=== PATIENT | male | born 1945 | race Caucasian/White ===

== ENCOUNTER 2020-09-25 03:06 | Emergency (ER) | payer MEDICARE, SELFPAY ==
[2020-09-25 03:08] VITALS: BP 186/94; PULSE 92; RESP 18; TEMP 37.3; O2SAT 99; BMI 20.7
[2020-09-25 03:43] LABS: Bacteria Urine None Seen; RBC Urine None Seen (0-5/HPF); WBC Urine None Seen (0-5/HPF)
[2020-09-25 03:44] LABS: Appearance Urine UA CLEAR; Bilirubin Urine UA NEGATIVE (NEGATIVE); Color Urine UA YELLOW; Glucose Urine UA NEGATIVE (Negative); Ketones Urine UA NEGATIVE (NEGATIVE); Leukocyte Esterase Urine UA NEGATIVE (NEGATIVE); Nitrite Urine UA NEGATIVE (Negative); Occult Blood Urine UA NEGATIVE (Negative); Protein Urine UA NEGATIVE (Negative); Specific Gravity Urine UA <=1.005 (1.000-1.035); Urobilinogen Urine UA 0.2 E.U./dL (0.2); pH Urine UA 6.5 (4.5-8.0)
[2020-09-25 03:48] LABS: Culture Indicated Urine Cult Not Indicated; Urine Comments Microscopic Normal
--- NOTE | 2020-09-25 04:19 | ED.MALEGU ---
HPI - Male Genitourinary General Chief complaint: Urogenital-Male Stated complaint: Unable to urinate Time Seen by Provider: 09/25/20 04:19 Source: patient Mode of arrival: Ambulatory Limitations: no limitations History of Present Illness HPI Narrative: This is a 74-year-old gentleman with known BPH who follows with Dr. Oliver for his urology. Patient is on Flomax daily. He noted had issues with some difficulty with urination, he will often find that he has difficulty emptying his better and then ?things will release? and he will be able to fully empty. This happens to him about once a week. Today he got severely uncomfortable. He came to the emergency department he about 1000 mL out by catheterization here in the department. He felt significantly better after this. He denies fevers, he denies any abdominal or flank pain after urine catheterization. He denies any frequency, dysuria sense of urgency. No new GI or urinary symptoms. Patient states he does not take any other medications regularly besides vitamins. He denies any prior surgeries. He denies any allergies to medications. Related Data Allergies Allergy/AdvReac Type Severity Reaction Status Date / Time No Known Drug Allergies Allergy Verified 09/25/20 04:33 Review of Systems Review of Systems ROS Unobtainable: All systems reviewed & are unremarkable except as noted in HPI and below Patient History Medical History (Updated 09/25/20 @ 04:38 by Isamar Su DO) BPH (benign prostatic hyperplasia) Substance Use Type: does not use Exam Narrative Exam Narrative: GENERAL: Alert and oriented x three, thin, elderly male in mild distress. This is post catheterization evaluation. HEENT: Head normocephalic, atraumatic, EOMI, pupils reactive, face symmetric, moist mucous membranes NECK: Supple, full range of motion CARDIOVASCULAR: Regular rate and rhythm without murmurs, rubs or gallops. RESPIRATORY: Breath sounds equal bilaterally, no wheezes rales or rhonchi. ABDOMEN: Soft, nontender. Normoactive bowel sounds all 4 quadrants. No guarding or rebound, rigidity, no mass : No CVA tenderness EXTREMITIES: Normal range of motion, no clubbing or edema. Neurovascularly intact NEUROLOGICAL: Cranial nerves II through XII grossly intact. Moving all extremities SKIN: Warm, dry, no petechiae, no rashes or lesions. Initial Vital Signs Initial Vital Signs: Vital Signs Temperature 99.1 F 09/25/20 03:08 Pulse Rate 92 H 09/25/20 03:08 Respiratory Rate 18 09/25/20 03:08 Blood Pressure 186/94 H 09/25/20 03:08 Pulse Oximetry 99 09/25/20 03:08 Course Orders Ordered: ED Orders 09/25/20 03:25 Urinalysis and Microscopic Stat Vital Signs Vital signs: Vital Signs - 8 hr 09/25/20 03:08 09/25/20 04:40 Temperature 99.1 F Pulse Rate 92 H 94 H Respiratory Rate 18 16 Blood Pressure 186/94 H 138/65 Pulse Oximetry 99 96 MDM - Male Genitourinary Lab Data Attestation: I reviewed the patient's lab results. Labs: Lab Results 09/25/20 Range/Units 03:25 Urine Color Yellow Urine Appearance Clear Urine pH 6.5 (4.5-8.0) Ur Specific [place] <=1.005 (1.000-1.035) Urine Protein Negative (Negative) Urine Glucose (UA) Negative (Negative) g/dL Urine Ketones Negative (NEGATIVE) Urine Occult Blood Negative (Negative) Urine Nitrate Negative (Negative) Urine Bilirubin Negative (NEGATIVE) Urine Urobilinogen 0.2 (0.2) E.U./dL Ur Leukocyte Esterase Negative (NEGATIVE) Urine RBC None seen (0-5/HPF) Urine WBC None seen (0-5/HPF) Urine Bacteria None seen (None) Ur Culture Indicated? Cult not indicated Micro UA Comment Microscopic normal MDM Narrative Medical decision making narrative: Patient had urine straight cath which produced a 1000 mL. We discussed that patient likely needs a Mobley catheter for several days to allow the bladder to return to its normal size. Patient defers placement Mobley catheter and would prefer to return home. We did discuss there is a high likelihood he will be back in the next day or so with urinary retention again. He has known BPH. He has had intermittent issues in the past and follows with urology regularly. He is currently on Flomax. No signs in his urine of infection. Patient will contact his urologist to follow up this week. He was encouraged to return sooner if he develops recurrent symptoms. Patient does not think he has been constipated but is occasionally. Encouraged to make sure he is either taking a stool softener or increasing his hydration and adding prunes or similar fiber to make sure that he has regular to prevent recurrence. Discharge Plan Departure Patient Disposition: Home Clinical Impression: Acute urinary retention Instructions: DI for Urinary Retention in Men Activity Restrictions/Additional Instructions: Follow up with urology for recheck. You may develop recurrent urinary retention as we are not sending her home with a Mobley catheter. You may need to return to for mobley catheter placement if your symptoms recur Continue your home flomax Return for fevers, new or worsening abdominal, back or flank pain, inability urinate, lightheadedness, passing out, persistent vomiting, black or bloody stools or other new or concerning symptoms. Referrals: Sayra Washburn MD [Non-Staff] -
[2020-09-25 04:40] VITALS: BP 138/65; PULSE 94; RESP 16; O2SAT 96
== END 2020-09-25 04:50 | disposition home or self-care (01) ==
PROVIDERS: Emergency Provider Emergency Medicine
DX: R33.8 Other retention of urine (principal)
CPT/HCPCS: 51798; 81001; 99282; 99283

== ENCOUNTER 2021-01-27 11:23 | Emergency (ER) | payer MEDICARE, SELFPAY ==
[2021-01-27 11:31] VITALS: BP 115/68; PULSE 85; RESP 18; TEMP 36.7; O2SAT 96; BMI 20.3
--- NOTE | 2021-01-27 12:11 | ED_ITS ---
HPI - URI/Sore Throat <Irena Simeon PA-C - Last Filed: 01/27/21 12:46> General Chief Complaint: Upper Respiratory Symptoms Stated Complaint: covid+, shallow breathing, nausea, congestion Time Seen by Provider: 01/27/21 12:10 Source: patient Mode of arrival: Ambulatory Limitations: no limitations History of Present Illness HPI Narrative: 75-year-old male with no significant pertinent medical history presents with concern for COVID. He took an [id number] test last night that was positive. He says most of his household is positive including his and other family members who spend time together recently with someone from [place] was not vaccinated and like to ?not wear a mask. He himself was vaccinated with [employer]. Since Sunday he has been having some congestion mild sore throat no significant coughing, also having some nausea which he says makes it challenging to want to eat. He says he went to the walk-in clinic to get tested and see if he needed any medicines and they sent him to the emergency department because his oxygen saturation was 94%. He says he is feeling a little bit fatigued when he gets up and walks around but otherwise has no complaints. Denies fevers, chills, shortness of breath, neck pain or stiffness, severe headache, diarrhea, vomiting, chest pain, abdominal pain or any other symptoms. Related Data Previous Rx's Medication Instructions Recorded benzonatate 100 mg capsule 100 mg PO TID PRN #30 cap 01/27/21 (Tessalon Perles) ondansetron HCl 4 mg tablet 4 mg PO Q8H PRN 10 Days #30 tab 01/27/21 (Zofran) Allergies Allergy/AdvReac Type Severity Reaction Status Date / Time No Known Drug Allergies Allergy Verified 09/25/20 04:33 Review of Systems <Irena Simeon PA-C - Last Filed: 01/27/21 12:46> Review of Systems Narrative: Unremarkable except as noted in the HPI Patient History <Irena Simeon PA-C - Last Filed: 01/27/21 12:46> Medical History BPH (benign prostatic hyperplasia) Social History Smoking Status: Former smoker Smoking Status: Former smoker Substance Use Type: does not use Exam <Irena Simeon PA-C - Last Filed: 01/27/21 12:46> Narrative Exam Narrative: GENERAL: [75] year old patient appears stated age. Well- nourished, well-developed patient, in mild distress. HEAD: Atraumatic. Normocephalic. EYES: Pupils equal round and reactive. Extraocular motions intact. No scleral icterus. No injection or drainage. ENT: Nose without bleeding, purulent drainage. Throat without erythema, tonsillar hypertrophy or exudate. Airway patent. NECK: Trachea midline. CARDIOVASCULAR: Regular rate and rhythm without murmurs, gallops, or rubs. RESPIRATORY: Clear to auscultation. Breath sounds equal bilaterally. No wheezes, rales, or rhonchi. GASTROINTESTINAL: Abdomen nondistended. EXTREMITIES: No edema or joint tenderness. BACK: Nontender without deformity or crepitance. No flank tenderness. NEURO: AOx3. SKIN: No rash or erythema of visible areas Initial Vital Signs Initial Vital Signs: Vital Signs Temperature 98.0 F 01/27/21 11:31 Pulse Rate 85 01/27/21 11:31 Respiratory Rate 18 01/27/21 11:31 Blood Pressure 115/68 01/27/21 11:31 Pulse Oximetry 96 01/27/21 11:31 <Renaldo Willson DO - Last Filed: 01/27/21 18:44> Initial Vital Signs Initial Vital Signs: Vital Signs Temperature 98.0 F 01/27/21 11:31 Pulse Rate 85 01/27/21 11:31 Respiratory Rate 18 01/27/21 11:31 Blood Pressure 115/68 01/27/21 11:31 Pulse Oximetry 96 01/27/21 11:31 Course <Irena Simeon PA-C - Last Filed: 01/27/21 12:46> Orders Ordered: ED Orders 01/27/21 11:38 COVID19 -Nasal swab/Pre-Proc Stat Vital Signs Vital signs: Vital Signs - 8 hr 01/27/21 11:31 01/27/21 12:37 Temperature 98.0 F Pulse Rate 85 69 Respiratory Rate 18 18 Blood Pressure 115/68 121/64 Pulse Oximetry 96 97 <Renaldo Willson DO - Last Filed: 01/27/21 18:44> Orders Ordered: ED Orders 01/27/21 11:38 COVID19 -Nasal swab/Pre-Proc Stat Vital Signs Vital signs: Vital Signs - 8 hr 01/27/21 11:31 01/27/21 12:37 Temperature 98.0 F Pulse Rate 85 69 Respiratory Rate 18 18 Blood Pressure 115/68 121/64 Pulse Oximetry 96 97 MDM - URI/Sore Throat <Irena Simeon PA-C - Last Filed: 01/27/21 12:46> Differential Diagnosis Differential diagnosis: Likely upper respiratory infection, sinusitis, viral infection, influenza and other (COVID) Lab Data Labs: Lab Results 01/27/21 Range/Units 11:38 SARS-CoV-2 (PCR) Positive H (Negative) MDM Narrative Medical decision making narrative: Well appearing ambulatory 75-year-old presents with concern for positive COVID home test. Sent from the walk-in clinic due to concern about oxygen saturations of 94%. In the ED patient's oxygen saturations are 96-98%. He is in no respiratory distress, has no complaints other than some mild congestion and a mild sore throat as well as some nausea. He is retested with a PCR test for further evaluation. Does admit to having positive COVID family members at home. Discussed options for [id number] and prescription medications, prescription for antinausea medicine Zofran and Tessalon for cough which is likely to become more problematic over the next few days. Discussed quarantining and return precautions. Patient had no further questions. Based on his exam, history and vitals do not believe that he warrants further evaluation with labs and chest x- ray. Return precautions provided, follow-up plan discussed, all questions answered. Patient's PCR test does come back positive for COVID. <Renaldo Willson DO - Last Filed: 01/27/21 18:44> Lab Data Labs: Lab Results 01/27/21 Range/Units 11:38 SARS-CoV-2 (PCR) Positive H (Negative) Discharge Plan Departure Patient Disposition: Home Clinical Impression: COVID-19 Activity Restrictions/Additional Instructions: You are coping well with your illness at this time, but follow up with your doctor over the next few days via telemedicine if available is recommended especially if you feel you are worsening and need further evaluation. Please return to the Emergency Department for worsening or persistent symptoms as we discussed. Please take medications as directed. I prescribed a cough medicine for you, you need to take it now but if you do start having a lot of coughing with this it may be helpful, I have also prescribed some antinausea medicine for you to help you get food down. Please work on staying hydrated, make sure you are eating healthy and continue to quarantine until your symptom free for at least 3 days and at least 10 days since the beginning of your symptoms. Prescriptions: New ondansetron HCl [Zofran] 4 mg tablet 4 mg PO Q8H PRN (Reason: nausea and vomiting) 10 Days Qty: 30 RF: 0 benzonatate [Tessalon Perles] 100 mg capsule 100 mg PO TID PRN (Reason: cough) Qty: 30 RF: 0 Referrals: Miscellaneous,Doctor, [Primary Care Provider] - <Renaldo Willson DO - Last Filed: 01/27/21 18:44> Cosign ED Attending Cosignature Attestation: I was immediately available in the department for consultation. This documentation has been reviewed and I agree with assessment and plan. Supervised by Renaldo Willson DO
[2021-01-27 12:37] VITALS: BP 121/64; PULSE 69; RESP 18; O2SAT 97
[2021-01-29 09:03] LABS: COVID19 -Nasal RAPID POSITIVE (Negative)
== END 2021-01-27 13:08 | disposition home or self-care (01) ==
PROVIDERS: Emergency Medicine; Emergency Provider Student in an Organized Health Care Education/Training Program
DX: U07.1 COVID-19 (principal)
CPT/HCPCS: 87635; 99281; 99282; C9803

== ENCOUNTER 2021-06-08 07:25 | Emergency (ER) | payer MEDICARE, SELFPAY ==
[2021-06-08 07:25] VITALS: BP 162/83; PULSE 96; RESP 18; TEMP 36.8; O2SAT 96; BMI 21.1
--- NOTE | 2021-06-08 07:45 | ED_ITS ---
HPI - General Adult General Chief complaint: Urogenital-Male Stated complaint: unable to empty bladder x2 hours Time Seen by Provider: 06/08/21 07:37 Source: patient Mode of arrival: Ambulatory History of Present Illness HPI narrative: Patient is a 75-year-old male who has a known history of prostate issues. Has had urinary retention in the past. Last episode was 6 months ago. A Roper catheter placed in the emergency department however it was removed prior to discharge home. He has not had any issues until last evening. States that he last urinated about 0200 hours in the morning. Since then has had issues with urination. No fevers. Had a small bowel movement this morning. Has a follow- up his urologist in 1 week from now. He states he arrived to the emergency department today earlier than what he did the last time with regard to his symptoms. Related Data Previous Rx's Medication Instructions Recorded benzonatate 100 mg capsule 100 mg PO TID PRN #30 cap 01/27/21 (Tesjulio Batista) Allergies Allergy/AdvReac Type Severity Reaction Status Date / Time No Known Drug Allergies Allergy Verified 09/25/20 04:33 Review of Systems Constitutional Constitutional: Denies fever(s) Cardiovascular Cardiovascular: Reports system reviewed and no additional complaints, except as documented Respiratory Respiratory: Reports system reviewed and no additional complaints, except as documented Gastrointestinal Gastrointestinal: Reports abdominal pain, Denies nausea and Denies vomiting Genitourinary Genitourinary: Reports as per HPI Integumentary/Breasts Skin/Breast: Reports system reviewed and no additional complaints, except as documented Neurologic Neurologic: Reports system reviewed and no additional complaints, except as documented Hematologic/Lymphatic On Anticoagulants: No Patient History Medical History BPH (benign prostatic hyperplasia) Social History Smoking Status: Former smoker Smoking Status: Former smoker Substance Use Type: does not use Exam Initial Vital Signs Initial Vital Signs: Vital Signs Temperature 98.3 F 06/08/21 07:25 Pulse Rate 96 H 06/08/21 07:25 Respiratory Rate 18 06/08/21 07:25 Blood Pressure 162/83 H 06/08/21 07:25 Pulse Oximetry 96 06/08/21 07:25 HENMT Head: normal to inspection Resp Effort & Inspection: normal respiratory effort GI Inspection: normal to inspection Palpation: soft and No tender External: normal external exam Skin General: no rashes or lesions noted Neuro General: patient alert, patient awake and moves all extremities Extrem General: normal to inspection and capillary refill normal Psych Appearance: grossly normal and well kempt Course Orders Ordered: ED Orders 06/08/21 07:45 Urinalysis and Microscopic Stat Vital Signs Vital signs: Vital Signs - 8 hr 06/08/21 07:25 Temperature 98.3 F Pulse Rate 96 H Respiratory Rate 18 Blood Pressure 162/83 H Pulse Oximetry 96 Medical Decision Making MDM Narrative Medical decision making narrative: Roper catheter was placed. We did have return of greater than 600 cc of urine. Was clear. A urine culture was pending at the time of discharge. We will wait for that before starting any antibiotics. He is currently on Flomax. Has follow-up with his urologist in 1 week for now. Had a discussion with him regarding options to include leaving the Roper catheter in place verses removing it. We did discuss the risks and benefits of this. He would like to have Roper catheter removed. He will return if symptoms return. He will continue with his Flomax. He expressed understanding agreement this plan. Discharge Plan Departure Patient Disposition: Home Clinical Impression: Acute retention of urine Instructions: DI for Urinary Retention in Men Activity Restrictions/Additional Instructions: It is important that she stay hydrated and also continue with your tamsulosin/Flomax. Keep your appointment with your urologist that is scheduled for next week. Return to the emergency department for any new or worsening symptoms. Prescriptions: No Action benzonatate [Tessalon Perles] 100 mg capsule 100 mg PO TID PRN (Reason: cough) Qty: 30 0RF Referrals: Miscellaneous,Doctor, [Primary Care Provider] -
[2021-06-08 08:19] VITALS: BP 150/60; PULSE 89; RESP 18; O2SAT 96
[2021-06-08 08:21] LABS: Appearance Urine UA CLEAR; Bilirubin Urine UA NEGATIVE (NEGATIVE); Color Urine UA YELLOW; Glucose Urine UA NEGATIVE (Negative); Ketones Urine UA NEGATIVE (NEGATIVE); Leukocyte Esterase Urine UA NEGATIVE (NEGATIVE); Nitrite Urine UA NEGATIVE (Negative); Occult Blood Urine UA NEGATIVE (Negative); Protein Urine UA NEGATIVE (Negative); Urobilinogen Urine UA 0.2 E.U./dL (0.2); pH Urine UA 6.5 (4.5-8.0)
[2021-06-08 08:28] LABS: Bacteria Urine None Seen; Culture Indicated Urine Cult Not Indicated; RBC Urine None Seen (0-5/HPF); Squamous Epithelial Cell Urine None Seen (0-5/HPF); WBC Urine None Seen (0-5/HPF)
== END 2021-06-08 08:24 | disposition home or self-care (01) ==
PROVIDERS: Emergency Provider Emergency Medicine
DX: R33.9 Retention of urine, unspecified (principal)
CPT/HCPCS: 51702; 81001; 99283

== ENCOUNTER 2023-09-08 00:10 | Emergency (ER) | payer MEDICARE, SELFPAY ==
[2023-09-08 00:14] VITALS: BP 170/98; PULSE 104; RESP 18; TEMP 36.8; O2SAT 95; BMI 22.0
[2023-09-08] MEDS: LIDOCAINE 2% (GLYDO) 6 ML GEL TOP (00:45)
--- NOTE | 2023-09-08 01:38 | PC.NURSE ---
Pt states pain has improved since arrival to ER. Pain 8.5/10 to normal 07/04
--- NOTE | 2023-09-08 02:12 | ED.GENADULT ---
HPI - General Adult General Chief complaint: Urogenital-Male Stated complaint: acute urinary retention Time Seen by Provider: 09/08/23 00:17 Source: patient Mode of arrival: Ambulatory History of Present Illness HPI narrative: 77-year-old gentleman with a history of BPH, currently on 0.8 mg of tamsulosin and followed by Urology [facility] presents with acute urinary retention. He has had 3 or 4 episodes of this previously has been to the emergency department with an in and out catheter and has always requested the Roper, out. He has not needed to come back for replacement. He states that he has not had any new medications, is not having any symptoms to suggest infection and has not missed any of his tamsulosin dosing. He complains of significant abdominal and lower pelvic pain on arrival Related Data Previous Rx's Medication Instructions Recorded benzonatate 100 mg capsule 100 mg PO TID PRN cough #30 caps 01/27/21 (Shelley Batista) Allergies Allergy/AdvReac Type Severity Reaction Status Date / Time No Known Drug Allergies Allergy Verified 09/25/20 04:33 Review of Systems Review of Systems Narrative: Pertinent positive and negative findings as per HPI Patient History Medical History BPH (benign prostatic hyperplasia) Social History Smoking Status: Former smoker Smoking Status: Former smoker Substance Use Type: does not use Exam Initial Vital Signs Initial Vital Signs: Vital Signs Temperature 98.3 F 09/08/23 00:14 Pulse Rate 104 H 09/08/23 00:14 Respiratory Rate 18 09/08/23 00:14 Blood Pressure 170/98 H 09/08/23 00:14 Pulse Oximetry 95 09/08/23 00:14 Oxygen Delivery Method Room Air 09/08/23 00:14 General: Alert appropriate in no acute distress Respiratory: Able to speak in full sentences, no obvious respiratory distress Skin: No obvious rashes, warm and dry Neurologic: Grossly intact no obvious asymmetries or abnormalities Psych: appropriate insight and affect, cooperative Roper catheter placed by nursing staff and 900 cc of clear urine is drained Course Orders Ordered: Discontinued Medications Lidocaine HCl (Lidocaine 2% (Glydo) 6 Ml Gel) 6 ml TOP NOW ONE Stop: 09/08/23 00:34 Last Admin: 09/08/23 00:45 Dose: 6 ml Documented By: MORGAN Vital Signs Vital signs: Vital Signs - 8 hr 09/08/23 00:14 Temperature 98.3 F Pulse Rate 104 H Respiratory Rate 18 Blood Pressure 170/98 H Pulse Oximetry 95 Oxygen Delivery Method Room Air Medical Decision Making MDM Narrative Medical decision making narrative: 77-year-old gentleman presents with acute urinary retention with no change to medications. On tamsulosin known BPH. States that this happens every your so and simply draining his bladder has been adequate in the past. He is very clear that he does not want to be discharged home with Roper catheter in place as it is so uncomfortable. With shared decision-making we agreed that the catheter would come out recognizing that if he is unable to void again he will need to come back. He will follow up with Urology and we will continue tamsulosin. Questions are answered he is safe for discharge Discharge Plan Departure Patient Disposition: Home Clinical Impression: Acute on chronic urinary retention BPH (benign prostatic hyperplasia) Qualifiers: Lower urinary tract symptom presence: symptoms present Lower urinary tract symptom detail: urinary retention Qualified Code(s): N40.1 - Benign prostatic hyperplasia with lower urinary tract symptoms Instructions: DI for Urinary Retention in Men Activity Restrictions/Additional Instructions: Thank you for coming in today With Roper catheter placed, you drained 900 cc of clear urine. It will be sent for urinalysis and we will contact you if there is any sign of infection. You have requested that we do not discharge you with a Roper catheter in place and I will certainly respect that. If you find that you are again unable to void, you will need to return to the ER for repeat Roper catheter placement. Please continue with your tamsulosin at 0.8 mg. I would recommend at least a phone call follow up with your urologist regarding this episode of acute urinary retention. Prescriptions: No Action benzonatate [Tessalon Perles] 100 mg capsule 100 mg PO TID PRN (Reason: cough) Qty: 30 0RF Referrals: Miscellaneous,Doctor, MD [Primary Care Provider] - Stand Alone Forms: Patient Portal/API
[2023-09-08 02:31] VITALS: BP 148/77; PULSE 75; RESP 20; O2SAT 94
== END 2023-09-08 02:33 | disposition home or self-care (01) ==
PROVIDERS: Emergency Provider Emergency Medicine
DX: N40.1 Benign prostatic hyperplasia with lower urinary tract symptoms (principal); R39.15 Urgency of urination
CPT/HCPCS: 51702; 51798; 99283

== ENCOUNTER → 2024-11-03 07:49 | Outpatient (CLI) | payer MEDICARE, SELFPAY | PROVIDERS: Referring Provider Urology; Visit Provider Urology | DX: Z01.818 Encounter for other preprocedural examination (principal); N40.1 Benign prostatic hyperplasia with lower urinary tract symptoms; R97.20 Elevated prostate specific antigen [PSA]; Z68.25 Body mass index [BMI] 25.0-25.9, adult | CPT/HCPCS: 87086; 99214 ==

== ENCOUNTER 2024-11-11 10:23 | Day surgery (SDC) | payer MEDICARE, SELFPAY ==
[2024-10-31 10:30] VITALS: BMI 25.0
[2024-11-11] VITALS (10 sets, daily range): BP systolic 110–134; BP diastolic 59–77; PULSE 85–112; RESP 14–22; TEMP 35.9–36.7; O2SAT 93–97; BMI 24.8
--- NOTE | 2024-11-11 | PATH_ITS ---
[facility] Accession Number: [id number] No. of containers..01 Tissue . 01 Material submitted: . prostate - PROSTATE CHIPS . 01 Diagnosis: PROSTATE CHIPS (42 GRAMS), TRANSURETHRAL RESECTION: Benign prostatic hyperplasia. No evidence of malignancy. MRV 11/18/2024 1430 Local . 01 Electronically signed: . Nataly Capps MD, Pathologist NPI- [id number] . 01 Gross description: . Received in formalin with two identifiers and prostate chips, are multiple eduardo soft tissue fragments admixed with a small amount of hemorrhagic material weighing 42 grams and aggregating to 10.3 x 9.0 x 2.5 cm. Approximately 50% of the specimen is submitted in A1-A10. ([id number]) /MRV 11/12/2024 2129 Local . 01 Pathologist provided ICD-10: N40.1 . 01 CPT . 075118 Specimen Comment: A courtesy copy of this report has been sent to [facility] Pathology Performed at: [address] [address], [place], [place] [id number] MD Doroteo Morales MD Phone: [phone]
[2024-11-11] MEDS: LACTATED RINGERS 1,000 ML 42 ML IV (10:45)
[2024-11-11] MEDS: ACETAMINOPHEN 325 MG TABLET 975 MG PO (10:46)
--- NOTE | 2024-11-11 13:15 | PM.PREOP ---
Pre-operative Note COVID-19 COVID-19 status: Not tested Interval Note History & Physical reviewed/Exam performed by Physician: Yes Changes to H&P: No
[2024-11-11] MEDS: levoFLOXacin 500 MG/100 ML PIGGYBACK 100 MG IV (13:43)
--- NOTE | 2024-11-11 14:13 | SUR.OPER ---
Lithotomy on padded OR bed, head on pillow, arms secured on padded arm boards at <90 degrees abduction. Legs secured in padded yellow fins stirrups.
[2024-11-11] MEDS: LACTATED RINGERS 1,000 ML 21 ML IV ×2 (14:20→15:58)
--- NOTE | 2024-11-11 16:58 | PM.OP.1 ---
Operative Date/Time/Diagnoses Date of procedure: 11/11/24 Time of procedure: 14:00 Pre-op diagnosis: Benign prostatic hyperplasia with lower urinary tract symptoms Post-op diagnosis: same Procedure & Clinicians Procedure: Cystoscopy Aquablation Same procedure as scheduled: Yes Indications: 79 y/o M noted to have symptoms consistent w/ BPH and LUTS that are currently poorly managed w/ Tamsulosin 0.8mg daily and strongly desires surgical management via an Aquablation procedure. Surgeon: Toni Loya Click Yes if Unassisted: Yes Anesthesia Type: General Operative Notes Findings: Very large prostate, large intravesical median lobe Closure Type: not applicable Specimen(s): other (prostate chips) Applied: catheter Estimated Blood Loss (mL): 50 Blood products transfused: none Procedure in detail: After informed consent was obtained, the patient was identified brought to the operating room where he was placed in his supine position on the table.? Once there anesthesia was induced and maintained.? Ensuring an adequate level of anesthesia the patient was transitioned to the lithotomy position where after time-out he was prepped.? After prepping, ensuring an adequate level of anesthesia, administration IV antibiotics and time-out 60 cc of ultrasound gel was instilled within the rectum and the ultrasound probe which had been attached to the TRUS stepper which was attached to the TRUS stepper articulating arm which was secured to the bed was advanced into the rectum under direct vision via the ultrasound.? The ultrasound probe was then aligned and confirmation made that the prostate was centered and aligned in both the sagittal and transverse views.? The bladder neck, verumontanum, central and transitional zones were identified.? With the ultrasound in place and adjusted the patient was then draped in a sterile fashion. With the patient draped the 24 Nepalese aqua beam handpiece was then inserted through the urethra and advanced into the bladder.? Cystoscopy was then performed and no concerning bladder mass or lesions were noted.? Bilateral ureteral orifices were noted to be orthotopic in nature.? As the cystoscope was advanced the level of the sphincter, verumontanum, bladder neck were all identified via ultrasound and under direct vision.? The aqua beam hand place was then secured to the handpiece articulating arm which had been secured to the bed.? The Aquablation handpiece and TRUS probe were confirmed to be parallel and colinear.? Confirmation was then made that the aqua beam handpiece and nozzle was centered and anterior to the bladder neck.? The cystoscope was then retracted under direct vision in the sphincter and verumontanum were identified.? The tip of the cystoscope was then placed proximal to the external sphincter.? Compression was applied with the TRUS probe to the prostate.? The alignment of the TRUS probe and aqua beam handpiece was once again confirmed.? Horizontal alignment of the handpiece water jet was then performed.? With these adjustments made, the treatment zones were then planned using real-time ultrasound.? In the largest transverse view of the prostate the depth and radial angles were determined and set again in the transverse view of the prostate.? In the longitudinal and sagittal view the Aquablation nozzle was identified and its position registered with the software and robot.? The treatment contours were then determined and adjusted to reflect the intended margins of resection.? Following our plan confirmation, the Aquablation resection treatment was started.? A 2nd pass was then completed in similar fashion after the 1st pass had been completed.? At this point, the Aqua hand piece was removed from the urethra. The 26Fr resectoscope was then inserted into the urethra and cystoscopy was repeated.? The [employer] aviation safety technician was utilized to evacuate the blood clots from the bladder.? The bladder neck was then resected using the bipolar Gyrus loop.? Bilateral ureteral orifices were again identified and noted to be intact at case end.? Hemostasis was obtained and noted to be excellent at case end.? The resectoscope was then removed and a 24Fr Delmis 3-way hematuria catheter was inserted through the urethra and into the bladder.? 60cc of sterile water was utilized for balloon insufflation.? Efflux was noted to be clear at case end.? Anesthesia was reversed, he was extubated in the OR and transferred to the PACU in stable condition for recovery. Complications: none Post-operative Condition: stable Disposition: Acute Care Plan for aftercare: Will transfer to acute care for recovery and continued CBI overnight with possible discharge home tomorrow afternoon.
[2024-11-11] MEDS: LACTATED RINGERS 1,000 ML 125 ML IV ×2 (17:48→20:53)
[2024-11-11] MEDS: OXYBUTYNIN 5 MG TABLET PO (18:13)
[2024-11-12 00:02] VITALS: BP 105/56; PULSE 84; RESP 16; TEMP 36; O2SAT 94
[2024-11-12] MEDS: BENZOCAINE/MENTHOL 1 LOZ PKT 1 EACH PO (01:17)
[2024-11-12 04:00] VITALS: BP 105/56; PULSE 66; RESP 16; TEMP 36.2; O2SAT 95
[2024-11-12 08:00] VITALS: BP 105/46; PULSE 71; RESP 16; TEMP 36.3; O2SAT 93
--- NOTE | 2024-11-12 08:07 | PM.PNPO.1 ---
Subjective Subjective Date Patient Seen: 11/12/24 Time Patient Seen: 08:00 Interval history: 79 y/o M w/ BPH and bothersome LUTS who strongly desired surgical management via an Aquablation procedure.? He is now POD 1 and tolerated the aforementioned procedure without any complications and had an uneventful night in the hospital.? He was tolerating a regular diet without nausea or vomiting and his pain remained well controlled.? His CBI was discontinued this AM and he will begin ambulating this morning. Exam Vital Signs (past 8 hours): - 11/12/24 04:00 11/12/24 08:00 Temperature 97.1 F L 97.4 F L Pulse Rate 66 71 Respiratory Rate 16 16 Blood Pressure 105/56 L 105/46 L Pulse Oximetry 95 93 Oxygen Flow Rate 0 0 Oxygen Delivery Method Room Air Oxygen Flow Rate 0 Narrative Exam Narrative: GEN:? Alert and oriented X3.? No acute distress.? Well-nourished. EYES:? PERRLA, EOMI. HENT:? Moist mucus membranes, no scleral icterus, normal neck ROM. RESP:? Unlabored breathing, equal rise and fall of chest bilaterally, no cyanosis appreciated. CV:? No peripheral edema, unremarkable heart rate. ABD:? Soft, non-tender, non-distended, no palpable masses. :? Mobley catheter secured and draining light pink urine without clots. EXT:? No edema, clubbing or cyanosis. SKIN:? No rashes or lesions. NEURO:? No focal neurologic deficits, CN II-XII grossly intact. PSYCH:? Cooperative, appropriate mood and affect. PFSH Medical History Hx of gastroesophageal reflux (GERD) BPH (benign prostatic hyperplasia) Surgical History Hx of circumcision Hx of prostate biopsy Family History Father Cancer Sister Cancer Social History marital status: number of children: 4 household members: spouse occupational status: previously employed leisure activities: exercise Smoking Status: Former smoker Tobacco: How many years used: 20 alcohol intake: former caffeine: Yes Type(s) of exercise: walking Assessment & Plan Post-op Postoperative Procedures: Procedures Operation Date: 11/11/24 12:00 Actual Procedure Side Surgeon p Aqucheli Loya DO Postoperative status: doing well Postoperative plan: routine post-op care Postoperative plan narrative: 79 y/o M w/ h/o BPH and bothersome LUTS who strongly desired surgical management via an Aquablation procedure. He is POD 1 and is recovering as expected. His CBI was discontinued this AM. - Will continue to hydrate well - As long as his efflux remains clear, will discharge home with mobley catheter and return next week for voiding trial Time Spent With Patient Time with patient: less than 15 minutes Quality VTE Deep Vein Thrombosis/Pulmonary Embolism Present on Admission: No
[2024-11-12] MEDS: TAMSULOSIN 0.4 MG CAPSULE PO (08:32)
--- NOTE | 2024-11-12 13:18 | CM.DANOTE ---
Initial DCP Assessment Visit Note Reviewed EMR and team rounds for status updates. Met with pt and dtr at bedside to introduce self and role, pt was found to be alert/oriented, sitting upright in the recliner and was preparing for home d/c. Pt resides independently with his spouse in their own home in [place]. He has been medically cleared by Dr. Loya for d/c, and will f/u with him in 1-week OP. Pt denies any CM d/c assistance or resource needs at this time. Payor: Medicare Attending: Dr. Loya Pt is a 79 year-old M post-op day 1 from an Aquablation procedure. He has a hx of benighn prostatic hyperplasia and slow bladder emptying concerns. Pt did well postoperatively, did have to be monitored for bleeding, however otherwise was medically stable for d/c. Discharge Planning/Care Management Advanced directive, confirm from FAMILY Start: 11/11/24 17:32 Freq: Q24H Status: Active Protocol: Document 11/11/24 17:32 JJ (Rec: 11/11/24 18:30 JJ Desktop) Advance Directive, confirm on record Time 18:30 Person contacted pt Copy received No CM Discharge Assessment Start: 11/11/24 14:07 Freq: Status: Active Protocol: Document 11/12/24 13:17 DPL (Rec: 11/12/24 13:18 DPL [id number]) Discharge Planning Assessment Assigned Delivery Driver LAVELL Villarreal Advance Directives? Yes Advance Directives on File No History Provided By Patient,Family Member,Medical Record Has Patient been admitted in last 30 No days? Prior Living Arrangements House Household Members spouse Type of transporation used prior to Drives own vehicle admit Independent with ADL's Yes Is patient alert and oriented? Yes Comment N/A Caregiver for Another Yes: is disabled DME Already Rented / Owned FWW / Walker Comment OP Urology Barriers to Discharge No Discharge Plan Home Transportation Arrangement dtr Referrals Initiated None needed Whiteboard Updated in Patient Room with Yes name and ext. # of Delivery Driver Review Status In Process Please Provide Date Initial DC 11/12/24 Assessment Was Performed Pre-Anesthesia Assessment Start: 10/31/24 10:30 Freq: Status: Complete Protocol: Document 10/31/24 10:30 LB (Rec: 10/31/24 10:42 LB [id number]) Pre-Anesthesia Assessment PAC Comment 10/31/24 Chart review. Patient Information Reviewed Via Chart Review Comment 09/10/24 at . Primary Care Provider [facility] [place] Seen Specialist in Last 12 Months Yes Specialist Seen Urologist Primary Language Central African Preferred Language Central African Agricultural Equipment Test Engineer Required No Height 165.1 cm Weight 68.039 kg Body Mass Index (BMI) 25.0 Anesthesia Review Requested No Medical Assembler No alcohol intake former Smoking Status Former smoker Is patient on oxygen? No Hx Sleep Apnea No Currently Taking a Beta Alphonso No Anti-Coagulant Therapy No Cardiac Testing No Bladder Pattern Frequency,Nocturia Urinary Catheter Present No Diabetes No Presence of External or Internal Medical No Devices Received a COVID vaccine? Yes Marital Status Lives With spouse Patient Discharge Plan Description Return Home Emergency Contact Name Loni Greennatalie - Emergency Contact Advance Directives on File No
--- NOTE | 2024-11-12 13:54 | PC.NURSE ---
D/c instructions reviewed with pt. Educated pt on how to clean mobley bag and how to switch to the leg bag. Pt able to return demonstration, and verbalized understanding for how to irrigate mobley. IV removed. Pt exited via w/c with CLERICAL ORDER FILLER to private vehicle.
== END 2024-11-12 13:58 | disposition home or self-care (01) ==
LOC: OR 10:47 → AC 13:53
PROVIDERS: Referring Provider Urology; Visit Provider Urology
PROC: 0VT08ZZ Resection of Prostate, Via Natural or Artificial Opening Endoscopic (ICD-10-PCS; CPT 52597; principal; 2024-11-11 12:00)
DX: N40.1 Benign prostatic hyperplasia with lower urinary tract symptoms (principal); R97.20 Elevated prostate specific antigen [PSA]; R33.8 Other retention of urine; R35.1 Nocturia; R35.0 Frequency of micturition
CPT/HCPCS: 0421T; C2596; J1100; J1956; J2405; J2704; J3010

== ENCOUNTER 2024-11-24 21:45 | Emergency (ER) | payer MEDICARE, SELFPAY ==
[2024-11-19 12:51] VITALS: BMI 24.8
[2024-11-24 21:50] VITALS: BP 149/77; PULSE 86; RESP 17; TEMP 36.9; O2SAT 97; BMI 23.5
--- NOTE | 2024-11-24 22:00 | PC.NURSE ---
pt had his catheter removed at the urologist this am and now is unable to urinate
[2024-11-24] MEDS: LIDOCAINE 2% (GLYDO) 6 ML GEL TOP (22:30)
--- NOTE | 2024-11-24 23:10 | ED.GENADULT ---
HPI - General Adult General Chief complaint: Urogenital-Male Stated complaint: Pain bladder, groin pain Time Seen by Provider: 11/24/24 22:49 Source: patient Mode of arrival: Ambulatory History of Present Illness HPI narrative: 79-year-old male now 2 weeks after Aquablation surgery for prostate cancer done by local urologist Dr. Loya, saw him in clinic earlier today this morning when catheter removed, was in and out of the clinic being reassessed regarding retained urine, no repeat catheter was put in, did eventually go home, but since being at home unable to urinate with increasing suprapubic area discomfort. Concerned that he might need the catheter put back in. No fevers or chills. No flank pain. No nausea or vomiting. Related Data Home Medications Medication Instructions Recorded Confirmed tamsulosin 0.4 mg capsule 0.8 mg PO BEDTIME 11/19/24 11/24/24 vit C 50 mg-E 15 unit-zinc cit 4.5 1 tab PO DAILY 11/19/24 11/24/24 mg-lutein 2.5 mg-zeaxan chew tablet (Comic Wonder) Allergies Allergy/AdvReac Type Severity Reaction Status Date / Time No Known Drug Allergies Allergy Verified 11/24/24 08:24 Patient History Medical History Hx of gastroesophageal reflux (GERD) BPH (benign prostatic hyperplasia) Surgical History Hx of circumcision Hx of prostate biopsy Family History Father Cancer Sister Cancer Social History marital status: number of children: 4 household members: spouse occupational status: previously employed leisure activities: exercise Tobacco: How many years used: 20 alcohol intake: former caffeine: Yes Type(s) of exercise: walking Exam Narrative Exam Narrative: GENERAL: Well-developed patient, in mild distress. HEAD: Atraumatic. Normocephalic. EYES: Pupils equal round and reactive. Extraocular motions intact. No scleral icterus. No injection or drainage. ENT: Nose without bleeding, purulent drainage. Throat without erythema, tonsillar hypertrophy or exudate. Airway patent. NECK: Trachea midline. Non tender CARDIOVASCULAR: Regular rate and rhythm without murmurs, gallops, or rubs. RESPIRATORY: Clear to auscultation. Breath sounds equal bilaterally. No wheezes, rales, or rhonchi. GASTROINTESTINAL: Abdomen soft, non-tender, nondistended. : Urinary catheter in place, with pink tinged fluid in tubing and collection bag, no clots. EXTREMITIES: No edema or joint tenderness. BACK: Nontender without deformity or crepitance. No flank tenderness. NEURO: AOx3. SKIN: No rash or erythema of visible areas Initial Vital Signs Initial Vital Signs: Vital Signs Temperature 98.5 F 11/24/24 21:50 Pulse Rate 86 11/24/24 21:50 Respiratory Rate 17 11/24/24 21:50 Blood Pressure 149/77 H 11/24/24 21:50 Pulse Oximetry 97 11/24/24 21:50 Oxygen Delivery Method Room Air 11/24/24 21:50 Course Orders Ordered: Discontinued Medications Lidocaine HCl (Lidocaine 2% (Glydo) 6 Ml Gel) 6 ml TOP NOW ONE Stop: 11/24/24 22:04 Last Admin: 11/24/24 22:30 Dose: 6 ml Documented By: MERRY Vital Signs Vital signs: Vital Signs - 8 hr 11/24/24 21:50 11/24/24 23:32 Temperature 98.5 F Pulse Rate 86 72 Respiratory Rate 17 18 Blood Pressure 149/77 H 140/74 Pulse Oximetry 97 18 L Oxygen Delivery Method Room Air Medical Decision Making [facility] Narrative Medical decision making narrative: 79-year-old male status post Aquablation treatment of prostate cancer 2 weeks ago, Roper catheter removed today, difficulty with urination through the day, went back to clinic a couple of more times, no repeat catheter, discharged home and stayed home, increasing suprapubic discomfort at home. Bladder scan increased, Roper catheter placed, 600 cc pink fluid, patient felt better. We will leave Roper catheter in place, patient to contact his urologist tomorrow morning. Return precautions discussed. Patient would like to go home now. Discharged home per patient request. Urinalysis requested, results pending at this time. Patient informed because of blood there maybe reflex culture that was sent, we will hold off on antibiotics for now, pending urine culture results. Discharge Plan Departure Patient Disposition: Home Clinical Impression: Acute urinary retention Activity Restrictions/Additional Instructions: 79-year-old male status post Aquablation prostate cancer treatment 2 weeks ago, today saw Urology for catheter removal, difficulty with urinating through the day, in and out of clinic, discharged home eventually, increasing suprapubic area discomfort, Roper catheter placed here with pink tinge urine without clot. No fever on triage. You felt better and wanted to go home now. Urinalysis was requested by lab, results are still pending at this time, with likely presence of blood there maybe a urine culture sent. We will hold on any antibiotics for now. Urine culture might be sent per laboratory protocol. Follow up with Urology as planned. You stated that you would call his office tomorrow morning. Return earlier to this/nearest emergency department for any change worsening symptoms or any concerns prior. Prescriptions: No Action tamsulosin 0.4 mg capsule 0.8 mg PO BEDTIME Ocuvite [facility] 50 mg-15 unit- 4.5 mg-2.5 mg tablet,chewable 1 tab PO DAILY Referrals: Miscellaneous,Doctor, MD [Primary Care Provider] - Stand Alone Forms: Patient Portal/API/Survey
[2024-11-24 23:32] VITALS: BP 140/74; PULSE 72; RESP 18; O2SAT 18
== END 2024-11-24 23:35 | disposition home or self-care (01) ==
PROVIDERS: Emergency Provider Emergency Medicine
DX: R33.8 Other retention of urine (principal)
CPT/HCPCS: 51798; 99213; 99283

== ENCOUNTER → 2024-12-15 11:53 | Outpatient (CLI) | payer MEDICARE, SELFPAY ==
[2024-12-01 10:58] VITALS: BMI 24.8
== END ==
PROVIDERS: Visit Provider Urology
DX: R39.9 Unspecified symptoms and signs involving the genitourinary system (principal)
CPT/HCPCS: 87077; 87086; 87186

== ENCOUNTER → 2025-01-12 12:50 | Outpatient (CLI) | payer MEDICARE, SELFPAY ==
[2025-01-05 09:15] VITALS: BMI 24.8
== END ==
PROVIDERS: Visit Provider Urology
DX: R30.0 Dysuria (principal)
CPT/HCPCS: 87077; 87086